=== PATIENT | female | born 1955 | race Caucasian/White ===

== ENCOUNTER 2017-07-07 02:24 | Observation (INO) | payer OTHER, SELFPAY ==
[2017-07-07 03:47] LABS: Troponin I Less than 0.010 ng/mL (< 0.028)
[2017-07-07] MEDS ORDERED: Acetaminophen 325 MG TAB PO PRN (05:34)
[2017-07-07] MEDS ORDERED: Ondansetron ODT 4 MG TAB PO PRN (05:34)
[2017-07-07] MEDS ORDERED: Acetaminophen 650 MG Suppository PR PRN (05:34)
[2017-07-07] MEDS ORDERED: Ibuprofen 600 MG TAB PO PRN (05:38)
[2017-07-07] MEDS ORDERED: Sodium Chloride 0.9% 1,000 ML IV SCH ×2 (05:45→06:30)
[2017-07-07] MEDS ORDERED: Levalbuterol HCl 0.63 MG/3 ML NEB NEB PRN (06:19)
[2017-07-07 06:49] LABS: Troponin I Less than 0.010 ng/mL (< 0.028)
[2017-07-07 07:29] VITALS: BP 129/61; TEMP 97.9
--- NOTE | 2017-07-07 07:36 | SS-2 ---
CODE STATUS: DNR. PRIMARY CARE PHYSICIAN: Dr. Connors in [place], [place] ATTENDING: Dr. Giancarlo Emerson RESIDENT: Shantel Ackerman D.O. HISTORIAN: Patient. CHIEF COMPLAINT: Passing out and chest pain. HISTORY OF PRESENT ILLNESS: The patient is a 62-year-old female with past medical history of asthma who presented to ER via transfer after having a syncopal episode related to possible chest pain. Reports partying with her family, drinking a lot and then passing out. Family reports she clenched her chest and passed out. The patient does not remember this. She reports no chest pain prior or after the event. Endorses occasional palpitations, daily alcohol use of 3 to a maximum of a case of beer daily. No history of DTs or seizures. She sees Dr. Connors in [place], has no cardiac problems. In the ER was given a banana bag. PAST MEDICAL HISTORY: 1. Asthma. 2. Chronic obstructive pulmonary disease. 3. Emphysema. PAST SURGICAL HISTORY: . ALLERGIES: "EVERYTHING". MEDICATIONS: Xopenex. FAMILY HISTORY: No coronary artery disease in the family. SOCIAL HISTORY: Denies tobacco use. Reports at least 3 beers per day, especially during the morning and as much as a case or 40 beers per day on occasion. Her last drink was the evening of 07/06/2017. Does report marijuana abuse. REVIEW OF SYSTEMS: GENERAL: The patient is negative for fever, chills, weight. Positive for appetite change, decreased. EYES: Negative for vision changes. ENT: Negative for rhinorrhea or congestion. RESPIRATORY: Negative for cough or congestion. CARDIOVASCULAR: Positive for chest pain and palpitations. GI: Negative for nausea, vomiting, diarrhea, constipation. GENITOURINARY: Denies incontinence, dysuria. SKIN: Denies rashes or lesions. MUSCULOSKELETAL: Reports pain, no tenderness or stiffness. NEURO: Denies weakness, numbness and syncope. PSYCHIATRIC: Denies anxiety, depression. PHYSICAL EXAMINATION: VITAL SIGNS: Blood pressure 113/52, pulse 64, respiratory rate 15, T-max 97.6, pulse ox 96% on room air, current weight 72.57 kilograms. GENERAL: The patient is alert and oriented x3, no acute distress, disheveled appearing and jittery. EYES: PERRLA, EOMI. ENT: Poor dentition. NECK: Supple. CARDIOVASCULAR: Regular rate and rhythm. No murmurs or gallops. Mild TTP of R chest. ABDOMEN: Soft, nontender. Bowel sounds present. EXTREMITIES: No clubbing, cyanosis or edema. SKIN: Warm and dry. MUSCULOSKELETAL: Structure within normal limits. Tone within normal limits. Muscle strength 5/5. Positive full range of motion. NEUROLOGIC: No focal deficits. Does appear to be shaking. GCS of 15. PSYCHIATRIC: Appropriate. LABORATORY DATA: CBC, white blood cell count 8.5, hemoglobin 12.7, hematocrit 37.5, MCV 97, % neutrophils 46. Chemistry: Sodium 132, potassium 3.7, chloride 97, CO2 21, BUN 8, creatinine 0.12, glucose 192. Calcium 8.5, total protein 7.6, albumin 3.7, AST 21, ALT 13 , alkaline phosphatase 69, total bilirubin 0.3, D-dimer 2.75, PTT 27.8, mag 2.0. Alcohol 229. EKG shows normal sinus rhythm. Chest x-ray; no acute process. ASSESSMENT AND PLAN: 1. Syncope, likely related to alcohol intoxication, but certain etiology unknown. Concern for arrhythmia with history of palpitations, malnutrition with a lack of proper diet, cardiac origin, orthostasis, or alcohol abuse. We will trend the troponin's, provide tele monitoring. IV fluids for rehydration, a prealbumin to evaluate malnutrition and perform orthostatics. Patient has a heart score of 0 and with that said, do not see a need for stress test. 2. Cannabis abuse. We will get a UDS and encourage cessation. 3. Costochondritis. We will provide ibuprofen for pain relief. 4. Asthma. We will give home medications. 5. Hyperglycemia. We will repeat tomorrow and consider A1c. 6. Hyponatremia, likely secondary to beer drinkers potomania. We will follow daily. 7. Elevated D-dimer. CTA was negative. HOSPITAL COURSE: Patient did well overnight. Troponins negative x3. Patient had no abnormalities on tele monitor. No need for further evaluation. Likely syncopal event related to alcohol intoxication. Discussed the need for alcohol cessation. Patient not interested in quitting and does not see a problem with her drinking. Disposition: Stable DISCHARGE INSTRUCTIONS: 1. Location: home 2. Diet: Regular 3. Activity: As tolerated 4. Follow up: Follow up with Dr. Connors in [place] in 1-2 wks. Patient was seen on rounds. I agree with posada portions of the note above. It is not clear from the story that she blacked out. It sounds more like she fell while intoxicated. No signs of seizure. Cardiac eval is negative. She is stable to go home. BRIA Emerson MD [facility]
[2017-07-07] MEDS ORDERED: FLU VACC QS2017-18 36 mo. & older 0.5 ML SYRINGE IM ONE (08:00)
[2017-07-07 08:19] LABS: Amphetamine Not Detected (NotDetected); Methadone Not Detected (NotDetected); Methamphetamine Not Detected (NotDetected)
--- NOTE | 2017-07-07 08:25 | CT ---
PRELIMINARY REPORT/[facility]/EMERGENCY AFTER HOURS PROCEDURE: EXAM: CT Angiography Chest With Intravenous Contrast CLINICAL HISTORY: 62 years old, female; Pain; Chest pain; Patient HX: 62 yr old female with pmh of asthma who presents as a transfer after having chest pain and passing out this evening. She reports partying with her fam julius, drinking a lot, and then passed out. Her family described it as her having clutched her chest an d then passed out. Unsure how long but patient states it was brief. She then reports the episode foll owed by going in and out of consciousness while sitting up. She describes chest pain like a knife sti cking into right side of chest and twisting. Denies SOB, diaphoresis, radiation of pain, or vomiting. TECHNIQUE: Axial computed tomographic angiography images of the chest with intravenous contrast using pulmonary embolism protocol. CONTRAST: 65 mL of iso 370 administered intravenously. COMPARISON: No relevant prior studies available. FINDINGS: Pulmonary arteries: Enlargement of the main pulmonary artery noted No pulmonary embolism. Aorta: No acute findings. No thoracic aortic aneurysm. Lungs: Unremarkable. No mass. No consolidation. Pleural space: Unremarkable. No significant effusion. No pneumothorax. Heart: Mild cardiomegaly. No significant pericardial effusion. No evidence of RV dysfunction. Bones/joints: No acute fracture. No dislocation. Soft tissues: Unremarkable. Lymph nodes:. Mildly large portacaval /gastrohepatic lymph nodes Question cirrhosis Mild esophageal thickening IMPRESSION: No definite pulmonary embolism. Mild enlargement of the main pulmonary artery. Correlate for pulmonary arterial hypertension Mild cardiomegaly Question mild esophagitis Mildly enlarged periportal lymph nodes. Question cirrhosis Thank you for allowing us to participate in the care of your patient. Dictated and Authenticated by: Ramy West MD 07/07/2017 4:28 AM Central Time ([place] & [place]) FINAL REPORT CT PULMONARY ANGIOGRAM WITH IV CONTRAST AND 3D POSTPROCESSING: I agree with the preliminary report given by Dr. Ramy West of [facility]. POS: [facility]
[2017-07-07 08:36] VITALS: BMI 21.6
[2017-07-07] MEDS ORDERED: ISOVUE-370 76%-LOCM 1 ML ONE (09:37)
[2017-07-07 09:51] LABS: Troponin I Less than 0.010 ng/mL (< 0.028)
--- NOTE | 2017-07-24 14:23 | EKG ---
Test Reason : SYNCOPEXFER Blood Pressure : / mmHG Vent. Rate : 068 BPM Atrial Rate : 068 BPM P-R Int : 138 ms QRS Dur : 084 ms QT Int : 438 ms P-R-T Axes : 049 067 065 degrees QTc Int : 465 ms Normal sinus rhythm No ST/T wave changes Confirmed by VAMSI KEARNEY DO ([id number]), newspaper or periodical editor FREDI SORIANO ([id number]) on 07/24/2017 2:23:03 PM Referred By: CARMELO Confirmed By:VAMSI KEARNEY DO
== END 2017-07-07 16:10 | disposition home or self-care (01) ==
LOC: ERS 02:24 → 2SW 03:47
PROVIDERS: ADMIT Family Medicine; ATTEND Family Medicine
DX: R55 Syncope and collapse (principal); R07.9 Chest pain, unspecified; J45.909 Unspecified asthma, uncomplicated; J43.9 Emphysema, unspecified; F12.10 Cannabis abuse, uncomplicated; M94.0 Chondrocostal junction syndrome [Tietze]; R73.9 Hyperglycemia, unspecified; E87.1 Hypo-osmolality and hyponatremia; Z72.89 Other problems related to lifestyle; Z88.8 Allergy status to other drugs, medicaments and biological substances; Z88.5 Allergy status to narcotic agent; Z98.890 Other specified postprocedural states
CPT/HCPCS: 36415; 71275; 80306; 82553; 84134; 84484; 85379; 93005; 96360; 96361; G0378

== ENCOUNTER 2019-11-22 19:30 | Inpatient (IN) | payer OTHER ==
[~2019-11-22 19:30] MED LIST: Iopamidol 370 76% 100 ML VIAL ONE
[2019-11-22 20:23] LABS: Mean Corpuscular HGB CONC 34.6 g/dL (32.0-36.0); Mean Corpuscular Hemoglobin 33.2 pg (27.0-31.0); Mean Corpuscular Volume 95.9 fL (78.0-98.0); Mean Platelet Volume 9.1 fL (7.4-10.4); Platelet Count 138 thou/uL (130-400); RBC Distribution Width 12.7 % (11.5-14.5); Red Blood Cell (RBC) Count 3.63 mill/uL (4.20-5.40); White Blood Cell (WBC) Count 18.2 thou/uL (4.8-10.8)
[2019-11-22] MEDS ORDERED: Cefepime 2 GM VIAL ONE (20:25)
[2019-11-22] MEDS ORDERED: Ondansetron PF 4 MG/2 ML Vial ONE (20:25)
--- NOTE | 2019-11-22 20:29 | RAD ---
SINGLE VIEW OF THE PELVIS AND TWO VIEWS OF THE LEFT HIP 11/22/19 HISTORY: Fatigue and left hip pain. FINDINGS: A single view of the pelvis and two views of the left hip shows the patient to be status post left hi p arthroplasty. No perihardware lucency or fracture is seen. No degenerative changes are seen in the right hip. IMPRESSION: Status post left hip arthroplasty without evidence of complication. POS: [facility]
--- NOTE | 2019-11-22 20:30 | RAD ---
SINGLE VIEW OF THE CHEST: 11/22/19 COMPARISON: 03/29/18 HISTORY: Fever with weakness and fatigue. FINDINGS: Single view of the chest shows a normal sized cardiomediastinal silhouette. There is no evidence of c onsolidation, mass, or pleural effusion. Degenerative changes are seen in the spine. IMPRESSION: No evidence of acute cardiopulmonary disease. POS: [facility]
[2019-11-22 20:40] LABS: Band 23 % (5-11); Lymphocytes 8 % (21-51); MDiff Complete? YES; Metamyelocyte 2 % (0-0); Monocytes 2 % (0-10); Neutrophil 63 % (42-75); Platelet Morphology Comment Appears Adequate; RBC Morphology Normal
[2019-11-22 20:45] LABS: ALT (SGPT) 13 U/L (8-55); AST (SGOT) 18 U/L (5-34); Albumin 3.3 g/dL (3.4-4.8); Alkaline Phosphatase 66 U/L (40-110); Anion Gap 15 mmol/L (10-20); BUN (Urea Nitrogen) 20 mg/dL (9.8-20.1); Bilirubin, Total 0.9 mg/dL (0.2-1.2); CK (CPK) 202 U/L (29-168); Calc. Creatinine Clearance 0 mL/min (70-130); Calcium 8.1 mg/dL (7.8-10.44); Carbon Dioxide 18 mmol/L (23-31); Chloride 102 mmol/L (98-107); Estimated GFR-MDRD 43; Globulin 3.6 g/dL (2.4-3.5); Glucose 324 mg/dL (80-115); Lipase 17 U/L (8-78); Magnesium 1.6 mg/dL (1.6-2.6); Protein, Total 6.9 g/dL (6.0-8.3); Sodium 131 mmol/L (136-145)
[2019-11-22] MEDS ORDERED: Vancomycin 1 GM/200 ML BAG ONE (21:32)
[2019-11-22 22:33] LABS: Bacteria/HPF 4+ HPF (None Seen); Bilirubin Negative (Negative); Blood, Urine 1+ (Negative); Clarity Turbid (Clear); Glucose, Urine (Dipstick) 500 mg/dL (Negative); Leukocyte 500 Leu/uL (Negative); Nitrite 2+ (Negative); Protein, Urine (Dipstick) 70 mg/dL (Neg-Trace); RBC/HPF 0-3 HPF (0-3); Renal Epithelial 0-3 HPF (None Seen); Urobilinogen Normal mg/dL (Less than 2); WBC/HPF Greater than 50 HPF (0-3)
--- NOTE | 2019-11-22 22:57 | CT ---
CT OF THE ABDOMEN AND PELVIS WITH CONTRAST: 11/22/19 COMPARISON: None. HISTORY: Fever with weakness and fatigue. TECHNIQUE: Multiple contiguous axial images were obtained in a CT of the abdomen and pelvis with contrast. Sagit megan and coronal reformats were performed. FINDINGS: Stranding changes are seen surrounding the left kidney. These stranding changes extend up to the tail of the pancreas. The left kidney has a slightly abnormal enhancement compared to the opposite side. No hydronephrosis is seen. No calcification is seen in either kidney. Adjacent to the left kidney and just behind the left renal artery, there is a tubular area of hyperenhancement measuring 2.7 cm in l ength x 1.2 cm x 0.9 cm in size. This has surrounding stranding changes. Other smaller retroperitonea l lymph nodes are seen which have a similar density. The liver, gallbladder, adrenal glands, and spleen are unremarkable. The large and small bowel are unremarkable. The appendix is normal. No abdominal or pelvic lymphadeno chandrika are seen. The reproductive organs are unremarkable. The patient has a left hip prosthesis which produces streak artifact limiting evaluation of the pelvi s. There is a calcification in the left pelvis which most likely represents a phlebolith rather than a left distal ureteral calcification. Degenerative changes are seen in the spine. The visualized inferior thorax and abdominal wall soft ti ssues are unremarkable. IMPRESSION: 1. There is stranding changes surrounding the left kidney which has a slightly abnormal enhancem ent pattern. Pyelonephritis is of primary concern. 2. There is a tubular shaped area of enhancement with surrounding stranding change adjacent to t he left kidney. This could represent an enlarged inflamed lymph node. This does not definitely connec t with the vascular structures in the region, but a pseudoaneurysm is also a possibility. POS: [facility]
[2019-11-22] MEDS ORDERED: Sodium Chloride 0.9% 1,000 ML IV SCH (23:15)
[2019-11-22] MEDS ORDERED: Ondansetron PF 4 MG/2 ML Vial IVP PRN (23:17)
[2019-11-23] MEDS: Sodium Chloride 0.9% 1,000 ML IV SCH ×2 (00:28→11:48)
--- NOTE | 2019-11-23 00:36 | HP ---
CHIEF COMPLAINT: Weakness and fever. HISTORY OF PRESENT ILLNESS: Ms. Acevedo is a 64-year-old female with past medical history of asthma/COPD, irritable bowel syndrome, who presents to the emergency room with weakness, fever, and fatigue. The patient reports fever was measured at 103.2. The patient also had associated nausea and vomiting that began today. The patient also had hip pain. The patient had a hip replacement surgery in the past. Workup in the emergency room, the patient was septic, hypotensive initially as per EMS, and the patient was given 2 L of IV fluids. Blood pressure was in the 80s. Latest blood pressure is 100/65. The patient was tachycardic with heart rate 102. The patient had elevated WBC count of 18.2, with bandemia. Imaging studies showed pyelonephritis. Urine showed urinary tract infection. Septic workup done in the ED. Started on IV antibiotics. The patient is being admitted to the hospital for further management. PAST MEDICAL HISTORY: As mentioned above in the history of present illness. PAST SURGICAL HISTORY: 1. Left hip open reduction and internal fixation. 2. . SOCIAL HISTORY: The patient drinks socially. No smoking history. FAMILY HISTORY: Reviewed and noncontributory. HOME MEDICATIONS: Please see home medication reconciliation form for updated medications. ALLERGIES: ALLERGIC TO BENADRYL AND CODEINE. REVIEW OF SYSTEMS: Review of 14 systems negative except what is mentioned in the history of present illness. PHYSICAL EXAMINATION: GENERAL: The patient is awake and alert, in moderate distress. VITAL SIGNS: Blood pressure 106/65; pulse 75; temperature 98.8, temperature maximum 100.9, at home temperature was 103.2; pulse oximetry 99% on room air. HEAD: Normocephalic, atraumatic. NECK: Supple. No JVD. CHEST: Fair bilateral air entry. HEART: S1 and S2. Regular. ABDOMEN: Soft, nontender. Bowel sounds present. NEUROLOGIC: Awake, alert, and oriented x3. No focal deficit. PSYCH: Unable to assess. EXTREMITIES: No clubbing, no cyanosis. GENITOURINARY: No suprapubic tenderness, but bilateral flank tenderness. LABORATORY DATA: As mentioned above in the history of present illness plus creatinine is 1.27. IMAGING STUDIES: Chest x-ray, no acute finding. X-ray of the hip, no acute finding. ASSESSMENT: 1. Sepsis secondary to urinary tract infection. 2. Acute pyelonephritis. 3. Asthma/chronic obstructive pulmonary disease. 4. Irritable bowel syndrome. 5. Nausea and vomiting. PLAN: 1. Admit. 2. Septic workup including blood cultures and urine cultures. 3. Continue with IV antibiotics. The patient was started on cefepime and vancomycin. 4. IV fluids. 5. Reconcile home medications. 6. DVT prophylaxis as appropriate. 7. Expected length of stay, 2 midnights or more. Job ID: [id number]
[2019-11-23 00:57] VITALS: BMI 28.8
[2019-11-23] MEDS: Acetaminophen 325 MG TAB PO PRN ×3 (03:51→18:28)
[2019-11-23 05:27] LABS: #Monocytes 0.9 thou/uL (0.11-0.59); #Neutrophils 11.1 thou/uL (1.40-6.50); %Basophils 0.2 % (0.0-1.0); %Eosinophils 0.2 % (0.0-10.0); %Lymphocytes 7.8 % (21.0-51.0); %Monocytes 6.7 % (0.0-10.0); %Neutrophils 85.2 % (42.0-75.0); Hemoglobin 11.2 g/dL (12.0-16.0); Mean Corpuscular HGB CONC 34.1 g/dL (32.0-36.0); Mean Corpuscular Hemoglobin 32.8 pg (27.0-31.0); Mean Corpuscular Volume 96.2 fL (78.0-98.0); Mean Platelet Volume 8.8 fL (7.4-10.4); Platelet Count 120 thou/uL (130-400); RBC Distribution Width 12.8 % (11.5-14.5); Red Blood Cell (RBC) Count 3.42 mill/uL (4.20-5.40)
[2019-11-23 05:48] LABS: ALT (SGPT) 13 U/L (8-55); AST (SGOT) 17 U/L (5-34); Albumin 3.1 g/dL (3.4-4.8); Alkaline Phosphatase 60 U/L (40-110); Anion Gap 15 mmol/L (10-20); BUN (Urea Nitrogen) 18 mg/dL (9.8-20.1); Bilirubin, Total 0.7 mg/dL (0.2-1.2); Calc. Creatinine Clearance 63 mL/min (70-130); Calcium 7.9 mg/dL (7.8-10.44); Carbon Dioxide 18 mmol/L (23-31); Chloride 102 mmol/L (98-107); Estimated GFR-MDRD 48; Globulin 3.5 g/dL (2.4-3.5); Glucose 237 mg/dL (80-115); Potassium 3.6 mmol/L (3.5-5.1); Protein, Total 6.6 g/dL (6.0-8.3); Sodium 131 mmol/L (136-145)
[2019-11-23] MEDS: Cefepime 2 GM in Sodium Chloride 0.9% 100 ML IVPB SCH ×2 (07:59→20:18)
[2019-11-23] MEDS ORDERED: Dextrose 50% Abboject 50 ML SYRINGE SLOW IVP PRN (08:46)
[2019-11-23] MEDS ORDERED: Dextrose 5% in Water 1,000 ML IV PRN (08:46)
[2019-11-23] MEDS ORDERED: Vancomycin HCl 1 GM in Sodium Chloride 0.9% 250 ML 300 ML IVPB SCH (09:00)
[2019-11-23] MEDS: glipiZIDE 10 MG TAB PO SCH (09:52)
[2019-11-23] MEDS ORDERED: Vancomycin 1.5 GRAM/300 ML BAG 1.5 GM in Premix Bag 1 BAG IVPB SCH (14:00)
[2019-11-23] MEDS: HumaLOG 300 UNITS/3 ML VIAL SC PRN ×2 (14:02→17:15)
[2019-11-23] MEDS: Mometasone 200 MCG/Formoterol 5 MCG 120 PUFF INHALER INH SCH (18:43)
[2019-11-23] MEDS: Montelukast Sodium 10 mg Tablet PO SCH (20:18)
[2019-11-24] MEDS: Acetaminophen 325 MG TAB PO PRN ×2 (04:58→22:05)
--- NOTE | 2019-11-24 05:54 | PDOC.HOSPP ---
- Subjective Encounter Date: 11/23/19 Encounter Time: 11:00 Subjective: pt up in bed complains of pain all over and chills. - Objective Vital Signs & Weight: Vital Signs (12 hours) Temp Pulse Resp BP BP Pulse Ox 11/24/19 04:00 98.6 F 91 18 90/42 L 90/42 L 96 11/24/19 00:00 98.4 F 60 18 141/75 H 108/64 95 11/23/19 20:00 102.8 F H 103 H 20 123/71 95 11/23/19 19:30 102.8 F H 103 H 20 123/71 95 11/23/19 18:43 101 H 16 98 Weight Weight 173 lb 1.006 oz Result Diagrams: 11/23/19 05:01 11/23/19 05:01 Additional Labs: Accuchecks 11/24/19 11/23/19 11/23/19 04:26 19:24 16:43 POC Glucose 196 H 205 H 229 H 11/23/19 11:19 POC Glucose 296 H Hospitalist ROS - Review of Systems Cardiovascular: denies: chest pain, palpitations, orthopnea, paroxysmal noc. dyspnea, edema, light headedness, other Gastrointestinal: denies: nausea, vomiting, abdominal pain, diarrhea, constipation, melena, hematochezia, other Genitourinary: denies: dysuria, frequency, incontinence, hematuria, retention, other Musculoskeletal: reports: other - Medication Medications: Active Medications Generic Name Dose Route Start Last Admin Trade Name Freq PRN Reason Stop Dose Admin Acetaminophen 650 mg 11/22/19 23:17 11/24/19 04:58 Tylenol PO 650 mg Q4H PRN Administration Headache/Fever/Mild Pain (1-3) Glipizide 10 mg 11/23/19 09:00 11/23/19 09:52 Glucotrol PO 10 mg DAILY CLYDE Administration Cefepime HCl 2 gm/ Sodium 100 mls @ 200 mls/hr 11/23/19 09:00 11/23/19 20:18 Chloride IVPB 100 mls Q12HR CLYDE Administration Sodium Chloride 1,000 mls @ 75 mls/hr 11/22/19 23:45 11/23/19 11:48 Normal Saline 0.9% IV 1,000 mls .[id number] CLYDE Administration Vancomycin HCl 1.5 gm/ Device 300 mls @ 200 mls/hr 11/23/19 14:00 11/23/19 13 :59 IVPB 300 mls 1400 CLYDE Administration Insulin Human Lispro 0 units 11/23/19 08:46 11/23/19 17:15 Humalog SC 3 unit .MILD SLIDING SCALE PRN Administration Mild Correctional Scale Mometasone Furoate/Formoterol Fumar 2 puff 11/23/19 18:30 11/23/19 18:43 Dulera 200 Mcg/5 Mcg Inhaler INH 2 puff BID-RT CLYDE Administration Montelukast Sodium 10 mg 11/23/19 21:00 11/23/19 20:18 Singulair PO 10 mg HS CLYDE Administration - Exam Neck: negative: supple, symmetric, no JVD, no thyromegaly, no lymphadenopathy, no carotid bruit, JVD Heart: negative: RRR, no murmur, no gallops, no rubs, normal peripheral pulses, irregular, diminshed peripheral pulses, murmur present, II/IV, III/IV Respiratory: negative: CTAB, no wheezes, no rales, no ronchi, normal chest expansion, no tachypnea, normal percussion, rales, rhonchi, tachypneic, wheezes Gastrointestinal: soft, non-tender, normal bowel sounds Extremities: negative: no cyanosis, no clubbing, no edema, 1+ LE edema, 2+ LE edema, clubbing Hosp A/P (1) Sepsis Code(s): A41.9 - SEPSIS, UNSPECIFIED ORGANISM Status: Acute (2) Pyelonephritis Code(s): N12 - TUBULO-INTERSTITIAL NEPHRITIS, NOT SPCF ACUTE OR CHRONIC Status: Acute (3) Bacteremia Code(s): R78.81 - BACTEREMIA Status: Acute (4) Diabetes mellitus Code(s): E11.9 - TYPE 2 DIABETES MELLITUS WITHOUT COMPLICATIONS Status: Acute - Plan will switch abx to ceftriaxone. will continue iv fluids. will put her on sliding scale given her elevated blood sugars. will continue her home diabetic meds too.
[2019-11-24] MEDS: Sodium Chloride 0.9% 1,000 ML IV SCH ×2 (06:03→16:44)
[2019-11-24] MEDS ORDERED: Non-Formulary Item 1 EACH (Levalbuterol Tartrate [Xopenex Hfa Inhaler] 2 PUFF) INH PRN (06:04)
[2019-11-24] MEDS ORDERED: PROVENTIL INHALER 6.7 G (200 INHALATIONS) INH PRN (06:14)
[2019-11-24] MEDS: Mometasone 200 MCG/Formoterol 5 MCG 120 PUFF INHALER INH SCH ×2 (06:58→19:06)
[2019-11-24] MEDS ORDERED: cefTRIAXone\\ROCEPHIN 2 GM in Sodium Chloride 0.9% 100 ML IVPB SCH (07:00)
[2019-11-24] MEDS: glipiZIDE 10 MG TAB PO SCH (08:56)
--- NOTE | 2019-11-24 14:49 | EKG ---
Test Reason : Blood Pressure : / mmHG Vent. Rate : 092 BPM Atrial Rate : 092 BPM P-R Int : 160 ms QRS Dur : 082 ms QT Int : 368 ms P-R-T Axes : 073 072 063 degrees QTc Int : 455 ms Normal sinus rhythm Low voltage QRS Cannot rule out Anterior infarct , age undetermined Abnormal ECG Confirmed by KHARI PRIDE ([id number]), multimedia editor FREDI SORIANO ([id number]) on 11/24/2019 2:48:59 PM Referred By: Confirmed By:KHARI PRIDE
[2019-11-24] MEDS: HumaLOG 300 UNITS/3 ML VIAL SC PRN (16:44)
--- NOTE | 2019-11-24 18:21 | PDOC.HOSPP ---
- Subjective Encounter Date: 11/24/19 Encounter Time: 10:30 Subjective: pt up in bed feels well and wants to go home. - Objective Vital Signs & Weight: Vital Signs (12 hours) Temp Pulse Resp BP Pulse Ox 11/24/19 08:00 96 11/24/19 07:55 98.3 F 82 16 114/65 96 11/24/19 06:58 93 18 97 Weight Weight 173 lb 1.006 oz Result Diagrams: 11/23/19 05:01 11/23/19 05:01 Additional Labs: Accuchecks 11/24/19 11/24/19 11/24/19 16:34 10:37 04:26 POC Glucose 257 H 268 H 196 H 11/23/19 19:24 POC Glucose 205 H Hospitalist ROS - Review of Systems Cardiovascular: denies: chest pain, palpitations, orthopnea, paroxysmal noc. dyspnea, edema, light headedness, other Gastrointestinal: denies: nausea, vomiting, abdominal pain, diarrhea, constipation, melena, hematochezia, other Genitourinary: denies: dysuria, frequency, incontinence, hematuria, retention, other - Medication Medications: Active Medications Generic Name Dose Route Start Last Admin Trade Name Freq PRN Reason Stop Dose Admin Acetaminophen 650 mg 11/22/19 23:17 11/24/19 04:58 Tylenol PO 650 mg Q4H PRN Administration Headache/Fever/Mild Pain (1-3) Glipizide 10 mg 11/23/19 09:00 11/24/19 08:56 Glucotrol PO 10 mg DAILY CLYDE Administration Sodium Chloride 1,000 mls @ 75 mls/hr 11/22/19 23:45 11/24/19 16:44 Normal Saline 0.9% IV 1,000 mls .[id number] CLYDE Administration Ceftriaxone Sodium 2 gm/ 100 mls @ 200 mls/hr 11/24/19 07:00 11/24/19 08:56 Sodium Chloride IVPB 100 mls Q24HR CLYDE Administration Insulin Human Lispro 0 units 11/23/19 08:46 11/24/19 16:44 Humalog SC 4 unit .MILD SLIDING SCALE PRN Administration Mild Correctional Scale Mometasone Furoate/Formoterol Fumar 2 puff 11/23/19 18:30 11/24/19 06:58 Dulera 200 Mcg/5 Mcg Inhaler INH 2 puff BID-RT CLYDE Administration Montelukast Sodium 10 mg 11/23/19 21:00 11/23/19 20:18 Singulair PO 10 mg HS CLYDE Administration Sodium Chloride 10 ml 11/24/19 09:00 11/24/19 09:14 Flush - Normal Saline IVF Not Given Q12HR CLYDE - Exam Neck: negative: supple, symmetric, no JVD, no thyromegaly, no lymphadenopathy, no carotid bruit, JVD Heart: negative: RRR, no murmur, no gallops, no rubs, normal peripheral pulses, irregular, diminshed peripheral pulses, murmur present, II/IV, III/IV Respiratory: negative: CTAB, no wheezes, no rales, no ronchi, normal chest expansion, no tachypnea, normal percussion, rales, rhonchi, tachypneic, wheezes Gastrointestinal: negative: soft, non-tender, non-distended, normal bowel sounds , no palpable masses, no hepatomegaly, no splenomegaly, no bruit, no guarding, no rigidity, tender to palpation, distended, diminished bowl sounds, voluntary guarding Hosp A/P (1) Sepsis Code(s): A41.9 - SEPSIS, UNSPECIFIED ORGANISM Status: Acute (2) Pyelonephritis Code(s): N12 - TUBULO-INTERSTITIAL NEPHRITIS, NOT SPCF ACUTE OR CHRONIC Status: Acute (3) Bacteremia Code(s): R78.81 - BACTEREMIA Status: Acute (4) Diabetes mellitus Code(s): E11.9 - TYPE 2 DIABETES MELLITUS WITHOUT COMPLICATIONS Status: Acute - Plan will switch abx to ceftriaxone. will continue iv fluids. will put her on sliding scale given her elevated blood sugars. will continue her home diabetic meds too. 11/23 will continue current abx, ID consulted. possible will discharge pt home if she does well brigitte. will need final cx.
--- NOTE | 2019-11-24 18:57 | CON ---
DATE OF CONSULTATION: 11/24/2019 REASON FOR CONSULTATION: Urosepsis. HISTORY OF PRESENT ILLNESS: A 64-year-old, who previously had been to [facility] and admitted for chest pain, rule out [place] situations in 17, 18, and 19 and this time brought in because of fever, general malaise, and vomiting. She also had some hip pain reported. There is no dyspnea or cough. No chest pain and did not have any abdominal pain. She also did not have any dysuria. The patient had a CT, which demonstrated findings consistent with left-sided pyelonephritis, leukocytosis with bandemia, and abnormal urinalysis. Two sets of blood cultures that yielded E. coli with pending susceptibilities. The patient has been treated with ceftriaxone with improvement. She is currently feeling back to normal, abiding a bit to go home. REVIEW OF SYSTEMS: A 10-point review of systems is negative at the moment. She denies any are incontinence. She does not think she retains urine. PAST MEDICAL HISTORY: COPD, episodes of chest pain with negative workup, one episode of invasive UTI, which was treated at [facility] about a year before this admission. She has a hip replacement in the past, but no other surgical procedure. Hip replacement was on the left side. She did have a though. Type 2 diabetes. 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 No smoking history. FAMILY HISTORY: Noncontributory. ALLERGIES: BENADRYL AND CODEINE. CURRENT MEDICATIONS: 1. Inhalers. 2. Ceftriaxone. 3. Glipizide, looks like she has a history of type 2 diabetes too, it is not reported in the note. 4. She is on insulin. PHYSICAL EXAMINATION: VITAL SIGNS: T-max 102.9, currently she has been afebrile. BP 114/65, pulse 82, respirations 16 to 18, and O2 saturation 96. SKIN: Exam was normal. Peripheral IV access. She is voiding in the toilet. No lymphadenopathy. HEENT: Noncontributory except for multiple missing teeth with decay and periodontitis. NECK: Supple. No jugular vein distention. No thyromegaly. LUNGS: Symmetric clear breath sounds. HEART: S1 and S2. Regular rate. No S3 or S4. ABDOMEN: Soft, somewhat protuberant. No ascites. No organomegaly. No bladder distention. EXTREMITIES: No joint inflammatory activity. Range of motion does not elicit pain in any joint. Pulses 1+ in dorsalis pedis. No edema. NEUROLOGIC: Nonfocal including cognitive function. LABORATORY DATA: White cell count is down to 13,000, hemoglobin 11, and platelets 120,000 with 85% neutrophils. Sodium 131, creatinine is up to 1.14 compared to baseline, but down from admission. Liver profile normal. Albumin 3.1 and lipase was within normal limits. Urinalysis with greater than 50 wbc's. IMAGING: Include abdomen and pelvis CT with stranding left kidney with enhancement, evidence of lymphadenitis around the kidney as well. Chest x-ray with no acute findings. ASSESSMENT AND PLAN: Type 2 diabetes, recurrent urinary tract infections including invasive character, now with pyelonephritis, left side. No obstructive features are noted. Susceptibility of the organism is still pending. We need to evaluate the cultures from [facility] to see if this is the same organism or not. If it is, she would merit a longer course of antimicrobial therapy for at least 4 weeks. If not, then short course of 10 to 14 days would suffice. The patient may merit suppressive therapy with nitrofurantoin or Bactrim depending on the susceptibility results of the culture. It does not appear to be any ESBL organism, so Rocephin seems to be adequate at the moment. The hope is that either Bactrim or preferably a quinolone will be active against the pathogen to allow discharge planning. Oral third generation cephalosporins are notoriously less effective for management of pyelonephritis. I would not recommend oral cephalosporins in this case, even if the organism is shown to be susceptible to third generation cephalosporins. Job ID: [id number]
[2019-11-24] MEDS: Montelukast Sodium 10 mg Tablet PO SCH (19:26)
[2019-11-25] MEDS ORDERED: cefTRIAXone\\ROCEPHIN 2 GM in Sodium Chloride 0.9% 100 ML IVPB SCH (07:00)
[2019-11-25] MEDS: Sodium Chloride 0.9% 1,000 ML IV SCH (07:04)
[2019-11-25 07:15] VITALS: BP 153/81; TEMP 98.3
[2019-11-25] MEDS: Mometasone 200 MCG/Formoterol 5 MCG 120 PUFF INHALER INH SCH (07:29)
[2019-11-25] MEDS: glipiZIDE 10 MG TAB PO SCH (08:23)
[2019-11-25] MEDS: Acetaminophen 325 MG TAB PO PRN (08:23)
--- NOTE | 2019-11-25 16:42 | DIS ---
DATE OF ADMISSION: 11/22/2019 DATE OF DISCHARGE: 11/25/2019 REASON FOR ADMISSION: E coli bacteremia, invasive urinary tract infection. SECONDARY DISCHARGE DIAGNOSIS: Left-sided pyelonephritis, diabetes mellitus type 2, and COPD. PROCEDURES DONE DURING HOSPITALIZATION: Blood cultures x2 grew E coli sensitive to all antibiotics. CT of the abdomen and pelvis done showed there was stranding around the left kidney suggestive of pyelonephritis. Chest x-ray done showed no acute cardiopulmonary abnormalities. Left hip three view x-ray done shows findings suggestive of left hip arthroplasty without complication. Influenza A and B antigens were negative. Urine culture showed less than 10,000 colony-forming units per mL of mixed kevin. Had a white count of 18 on the day of admission. H and H 12 and 34, platelet count 138 with 23% bands and 63% neutrophils. BUN and creatinine were 18 and 1.1 on the . DISCHARGE MEDICATIONS: 1. Glipizide 10 mg p.o. daily. 2. Advair Diskus 500/50 mcg two puffs twice daily. 3. Xopenex inhaler q.4 hourly p.r.n. 4. Singulair 10 mg p.o. at bedtime. 5. Ciprofloxacin 500 mg p.o. twice daily for 14 days. ALLERGIES: ALLERGIC TO CODEINE, BENADRYL, AND IODINE. DISCHARGE PLAN: The patient to follow up with her primary care physician, Dr. Tad López in 1 week. BRIEF COURSE DURING HOSPITALIZATION: The patient initially came to ER with complaints of weakness and fever. Her initial workup revealed UTI with left-sided pyelonephritis. She was septic as well. She was gently hydrated with IV fluids and was on broad-spectrum IV antibiotic. 2 blood cultures grew E coli. She has had similar infection a year back at [facility]. We were unable to obtain records from there. The patient is strongly advised to follow up with her primary care physician in 1 week and if needed, needs to be on suppressive antibiotics after the two-week course of quinolones. She was given full information about all the side effects of quinolones. She is wanting to go home from last 2 days. She was evaluated by Dr. Mcguire as well. Prior to discharge, Ms. Acevedo is ambulating and eating well. Please note I have seen and examined the patient on the day of discharge. Job ID: [id number]
== END 2019-11-25 11:46 | disposition home or self-care (01) | DRG 872 ==
LOC: ERS 19:30 → T4-B 23:23
PROVIDERS: ADMIT Internal Medicine; ATTEND Internal Medicine
DX: A41.51 Sepsis due to Escherichia coli [E. coli] (principal); N10 Acute pyelonephritis; J44.9 Chronic obstructive pulmonary disease, unspecified; Z96.642 Presence of left artificial hip joint; K58.9 Irritable bowel syndrome, unspecified; E11.65 Type 2 diabetes mellitus with hyperglycemia; Z88.5 Allergy status to narcotic agent; Z88.8 Allergy status to other drugs, medicaments and biological substances; Z79.899 Other long term (current) drug therapy; Z79.4 Long term (current) use of insulin; Z79.51 Long term (current) use of inhaled steroids
CPT/HCPCS: 36415; 36416; 71045; 74177; 80053; 81003; 81015; 82550; 83605; 83690; 83735; 84443; 84484; 85025; 87040; 87077; 87086; 87149; 87186; 87804; 93005; 96365; 96366; 96367; J0692; J0696; J2405; J3370; J3490; Q9967

== ENCOUNTER 2023-03-14 19:35 | Observation (INO) | payer OTHER ==
[2023-03-14] MEDS ORDERED: Ondansetron PF 4 MG/2 ML Vial IVP PRN ×2 (22:45→23:23)
[2023-03-14] MEDS ORDERED: Ondansetron ODT 4 MG TAB SL PRN (22:45)
[2023-03-14] MEDS ORDERED: Sodium Chloride 0.9% 1,000 ML IV SCH (22:45)
[2023-03-14] MEDS ORDERED: Acetaminophen 325 MG TAB PO PRN ×2 (22:45→23:23)
[2023-03-14] MEDS ORDERED: Dextrose 5% in Water 1,000 ML IV PRN (23:23)
[2023-03-14] MEDS ORDERED: hydrALAZINE 20 MG/ML VIAL SLOW IVP PRN (23:23)
[2023-03-14] MEDS ORDERED: Glucagon 1 MG/ML KIT IM PRN (23:23)
[2023-03-14] MEDS ORDERED: Dextrose 50% Abboject 50 ML SYRINGE SLOW IVP PRN (23:23)
[2023-03-14] MEDS ORDERED: HumaLOG 300 UNITS/3 ML VIAL SC PRN (23:23)
[2023-03-14] MEDS ORDERED: Ondansetron ODT 4 MG TAB PO PRN (23:23)
[2023-03-14] MEDS ORDERED: Aspirin Chewable 81 MG TAB PO SCH (23:45)
[2023-03-14] MEDS ORDERED: Loratadine 10 MG TAB PO PRN (23:55)
[2023-03-15 04:44] LABS: #Eosinphils 0.3 thou/uL (0.0-0.7); #Monocytes 0.6 thou/uL (0.11-0.59); #Neutrophils 3.9 thou/uL (1.40-6.50); %Basophils 0.5 % (0.0-1.0); %Eosinophils 4.2 % (0.0-10.0); %Lymphocytes 34.4 % (21.0-51.0); %Monocytes 7.7 % (0.0-10.0); %Neutrophils 52.9 % (42.0-75.0); Hematocrit 32.2 % (36.0-47.0); Hemoglobin 10.6 g/dL (12.0-16.0); Mean Corpuscular HGB CONC 32.9 g/dL (32.0-36.0); Mean Corpuscular Hemoglobin 30.8 pg (27.0-31.0); Mean Corpuscular Volume 93.6 fl (78.0-98.0); Mean Platelet Volume 10.9 fL (7.4-10.4); Platelet Count 184 10x3/uL (130-400); RBC Distribution Width 11.9 % (11.5-14.5); Red Blood Cell (RBC) Count 3.44 mill/uL (4.20-5.40); White Blood Cell (WBC) Count 7.3 10x3/uL (4.8-10.8)
[2023-03-15 04:48] LABS: Hemoglobin A1c 11.6 % (4.0-6.0)
[2023-03-15 05:03] LABS: Anion Gap 9 mmol/L (10-20); BUN (Urea Nitrogen) 12 mg/dL (9.8-20.1); Calc. Creatinine Clearance 0 mL/min (70-130); Calcium 8.5 mg/dL (7.8-10.44); Carbon Dioxide 25 mmol/L (23-31); Cardiac Risk 4.5 (Less than 4.5); Chloride 103 mmol/L (98-107); Cholesterol 161 mg/dl (< 200 Desired); Estimated GFR 70; Glucose 192 mg/dL (80-115); HDL Cholesterol 36 mg/dL (>60 Neg Risk); LDL Cholesterol, Calculated 91 mg/dL; Magnesium 2.2 mg/dL (1.6-2.6); Potassium 4.3 mmol/L (3.5-5.1); Sodium 133 mmol/L (136-145); Triglycerides 170 mg/dL (Less than 150)
[2023-03-15] MEDS: HumaLOG 300 UNITS/3 ML VIAL SC PRN ×2 (05:50→12:25)
[2023-03-15] MEDS ORDERED: Aspirin 81 mg Enteric Coated Tablet PO SCH (09:00)
[2023-03-15 11:44] VITALS: BMI 24.1
[2023-03-15 16:06] VITALS: BP 153/69; TEMP 98
[2023-03-15] MEDS ORDERED: Atorvastatin Calcium 40 MG TAB PO SCH (21:00)
== END 2023-03-15 17:10 | disposition home or self-care (01) ==
LOC: 2SE 22:26
PROVIDERS: ADMIT Family Medicine; ATTEND Nurse Practitioner Acute Care
DX: G45.9 Transient cerebral ischemic attack, unspecified (principal); E11.65 Type 2 diabetes mellitus with hyperglycemia; M19.90 Unspecified osteoarthritis, unspecified site; J45.909 Unspecified asthma, uncomplicated; J44.9 Chronic obstructive pulmonary disease, unspecified; Z79.82 Long term (current) use of aspirin; Z79.4 Long term (current) use of insulin; Z79.899 Other long term (current) drug therapy; Z88.6 Allergy status to analgesic agent; Z88.8 Allergy status to other drugs, medicaments and biological substances; Z91.041 Radiographic dye allergy status
CPT/HCPCS: 36415; 36416; 70551; 80048; 80061; 83036; 83735; 84443; 85025; 93880; G0378; J1815

== ENCOUNTER 2023-10-11 11:09 | Inpatient (IN) | payer MEDICARE, MEDICAID ==
[2023-10-11 11:49] LABS: #Basophils 0.1 thou/uL (0.0-0.2); #Eosinphils 0.2 thou/uL (0.0-0.7); #Monocytes 0.3 thou/uL (0.11-0.59); #Neutrophils 3.1 thou/uL (1.40-6.50); %Basophils 1.1 % (0.0-1.0); %Eosinophils 3.4 % (0.0-10.0); %Lymphocytes 31.1 % (21.0-51.0); %Neutrophils 59.2 % (42.0-75.0); Hematocrit 36.5 % (36.0-47.0); Hemoglobin 11.2 g/dL (12.0-16.0); Mean Corpuscular HGB CONC 30.7 g/dL (32.0-36.0); Mean Corpuscular Hemoglobin 28.1 pg (27.0-31.0); Mean Corpuscular Volume 91.7 fl (78.0-98.0); Mean Platelet Volume 9.9 fL (7.4-10.4); Platelet Count 245 10x3/uL (130-400); RBC Distribution Width 13.5 % (11.5-14.5); Red Blood Cell (RBC) Count 3.98 mill/uL (4.20-5.40); White Blood Cell (WBC) Count 5.2 10x3/uL (4.8-10.8)
[2023-10-11] MEDS ORDERED: Famotidine/PF 20 mg/2ml Vial ONE (11:59)
[2023-10-11] MEDS ORDERED: methylPREDNISolone Sod Succ/PF 125 MG/2 ML VIAL ONE (11:59)
[2023-10-11] MEDS ORDERED: Ipratropium/Albuterol 3 ML NEB ONE (12:01)
[2023-10-11 12:05] LABS: INR-International Normal Ratio 1.2; PTT 32.5 sec (22.9-36.1); Prothrombin Time 14.9 sec (12.0-14.7)
[2023-10-11 12:07] LABS: D-Dimer Test 2.57 mcg/mL (0.27-0.43)
[2023-10-11 12:15] LABS: ALT (SGPT) 10 U/L (8-55); AST (SGOT) 19 U/L (5-34); Albumin 3.4 g/dL (3.4-4.8); Alkaline Phosphatase 83 U/L (40-110); Anion Gap 14 mmol/L (10-20); BUN (Urea Nitrogen) 10 mg/dL (9.8-20.1); Bilirubin, Total 0.4 mg/dL (0.2-1.2); Calc. Creatinine Clearance 0 mL/min (70-130); Calcium 9.3 mg/dL (7.8-10.44); Carbon Dioxide 27 mmol/L (23-31); Chloride 96 mmol/L (98-107); Estimated GFR 71; Globulin 5.5 g/dL (2.4-3.5); Glucose 177 mg/dL (80-115); Lipase 17 U/L (8-78); Protein, Total 8.9 g/dL (5.8-8.1); Sodium 133 mmol/L (136-145)
[2023-10-11 12:17] LABS: Troponin I 0.057 ng/mL (< 0.028)
[2023-10-11] MEDS ORDERED: Sodium Chloride 0.9% 100 ML ONE (12:39)
[2023-10-11] MEDS ORDERED: cefTRIAXone (ROCEPHIN) 1 GM VIAL ONE (12:39)
[2023-10-11] MEDS ORDERED: Azithromycin 500 MG VIAL ONE (12:39)
[2023-10-11] MEDS ORDERED: Zolpidem Tartrate 5 MG TAB PO PRN (15:24)
[2023-10-11] MEDS ORDERED: Ondansetron PF 4 MG/2 ML Vial IVP PRN (15:24)
[2023-10-11] MEDS ORDERED: Ondansetron ODT 4 MG TAB PO PRN (15:24)
[2023-10-11] MEDS ORDERED: Guaifenesin DM 100-10/5 ML UDCUP PO PRN (15:24)
[2023-10-11] MEDS ORDERED: Acetaminophen 650 MG Suppository PR PRN (15:24)
[2023-10-11] MEDS ORDERED: Acetaminophen 325 MG TAB PO PRN (15:24)
[2023-10-11] MEDS ORDERED: Bisacodyl 10 MG SUPP PR PRN (15:24)
[2023-10-11] MEDS ORDERED: Bisacodyl 5 MG TAB PO PRN (15:24)
[2023-10-11] MEDS ORDERED: Calcium Carbonate 500 MG ChewTAB PO PRN (15:24)
[2023-10-11] MEDS ORDERED: Glucagon 1 MG/ML KIT IM PRN (15:27)
[2023-10-11] MEDS ORDERED: Dextrose 50% Abboject 50 ML SYRINGE SLOW IVP PRN (15:27)
[2023-10-11] MEDS ORDERED: Dextrose 5% in Water 1,000 ML IV PRN (15:27)
[2023-10-11] MEDS ORDERED: Aspirin Chewable 81 MG TAB ONE (15:38)
[2023-10-11 17:36] VITALS: BMI 27.8
[2023-10-11 17:42] LABS: Troponin I 0.056 ng/mL (< 0.028)
[2023-10-11] MEDS: Sodium Chloride 0.9% 1,000 ML IV SCH (17:53)
[2023-10-11] MEDS: Losartan 25 MG TAB PO SCH (18:43)
[2023-10-11] MEDS ORDERED: fentaNYL 50 mcg/mL 1 mL Vial SLOW IVP SCH (19:45)
[2023-10-11] MEDS: Ibuprofen 600 MG TAB PO SCH (21:21)
[2023-10-11] MEDS: Apixaban 5 MG TAB PO SCH (21:22)
[2023-10-11] MEDS: Ipratropium/Albuterol 3 ML NEB NEB PRN (22:57)
[2023-10-11 23:26] LABS: Troponin I 0.058 ng/mL (< 0.028)
[2023-10-12 04:30] LABS: #Monocytes 0.1 thou/uL (0.11-0.59); #Neutrophils 2.4 thou/uL (1.40-6.50); %Basophils 0.3 % (0.0-1.0); %Lymphocytes 21.7 % (21.0-51.0); %Monocytes 2.5 % (0.0-10.0); %Neutrophils 74.9 % (42.0-75.0); Hematocrit 34.1 % (36.0-47.0); Hemoglobin 10.3 g/dL (12.0-16.0); Mean Corpuscular HGB CONC 30.2 g/dL (32.0-36.0); Mean Corpuscular Hemoglobin 28.1 pg (27.0-31.0); Mean Corpuscular Volume 93.2 fl (78.0-98.0); Mean Platelet Volume 10.4 fL (7.4-10.4); Platelet Count 238 10x3/uL (130-400); RBC Distribution Width 13.6 % (11.5-14.5); Red Blood Cell (RBC) Count 3.66 mill/uL (4.20-5.40); White Blood Cell (WBC) Count 3.2 10x3/uL (4.8-10.8)
[2023-10-12 05:11] LABS: ALT (SGPT) 8 U/L (8-55); AST (SGOT) 15 U/L (5-34); Albumin 2.9 g/dL (3.4-4.8); Alkaline Phosphatase 71 U/L (40-110); Anion Gap 14 mmol/L (10-20); BUN (Urea Nitrogen) 20 mg/dL (9.8-20.1); Bilirubin, Total 0.2 mg/dL (0.2-1.2); Calc. Creatinine Clearance 49 mL/min (70-130); Calcium 8.6 mg/dL (7.8-10.44); Carbon Dioxide 23 mmol/L (23-31); Chloride 98 mmol/L (98-107); Critical Call Chemistry NUR.KDO@0510; Estimated GFR 43; Globulin 4.9 g/dL (2.4-3.5); Glucose 447 mg/dL (80-115); Protein, Total 7.8 g/dL (5.8-8.1); Sodium 130 mmol/L (136-145)
[2023-10-12] MEDS: HumaLOG 300 UNITS/3 ML VIAL SC PRN (05:22)
[2023-10-12] MEDS: methylPREDNISolone Sod Succ 40 MG VIAL IVP SCH (10:10)
[2023-10-12 10:40] LABS: Troponin I 0.056 ng/mL (< 0.028)
[2023-10-12] MEDS: Losartan 25 MG TAB PO SCH (11:54)
[2023-10-12] MEDS: cefTRIAXone\\ROCEPHIN 1 GM in Sodium Chloride 0.9% 100 ML IVPB SCH (11:54)
[2023-10-12] MEDS: Azithromycin 500 MG in Sodium Chloride 0.9% 250 ML 250 ML IVPB SCH (13:26)
[2023-10-12 17:19] LABS: Bilirubin Negative (Negative); Blood, Urine Negative (Negative); CAUTI Indications for Culture Pelvic or flank pain; Clarity Clear (Clear); Glucose, Urine (Dipstick) Greater than 1000 mg/dL (Negative); Ketone, Urine Negative (Negative); Leukocyte Negative Leu/uL (Negative); Nitrite Negative (Negative); Protein, Urine (Dipstick) 100 mg/dL (Neg-Trace); RBC/HPF 0-3 HPF (0-3); Specific Gravity, Urine 1.014 (1.002-1.036); Squamous Epithelial 0-3 HPF (0-3); Urobilinogen Normal mg/dL (Less than 2); WBC/HPF 0-3 HPF (0-3); pH, Urine 5.5 (5.0-9.0)
[2023-10-12 17:23] LABS: Bacteria/HPF 1+ HPF (None Seen)
[2023-10-12 17:24] LABS: Urine Culture Reflex No No
[2023-10-12] MEDS: Ipratropium/Albuterol 3 ML NEB NEB SCH (18:25)
[2023-10-13 05:17] LABS: #Monocytes 0.5 thou/uL (0.11-0.59); #Neutrophils 3.9 thou/uL (1.40-6.50); %Basophils 0.5 % (0.0-1.0); %Eosinophils 0.3 % (0.0-10.0); %Lymphocytes 31.2 % (21.0-51.0); %Monocytes 7.2 % (0.0-10.0); %Neutrophils 60.5 % (42.0-75.0); Hematocrit 33.9 % (36.0-47.0); Hemoglobin 10.1 g/dL (12.0-16.0); Mean Corpuscular HGB CONC 29.8 g/dL (32.0-36.0); Mean Corpuscular Hemoglobin 28.2 pg (27.0-31.0); Mean Corpuscular Volume 94.7 fl (78.0-98.0); Mean Platelet Volume 10.3 fL (7.4-10.4); Platelet Count 274 10x3/uL (130-400); RBC Distribution Width 13.8 % (11.5-14.5); Red Blood Cell (RBC) Count 3.58 mill/uL (4.20-5.40); White Blood Cell (WBC) Count 6.4 10x3/uL (4.8-10.8)
[2023-10-13 05:36] LABS: Troponin I 0.063 ng/mL (< 0.028)
[2023-10-13 05:39] LABS: ALT (SGPT) 8 U/L (8-55); AST (SGOT) 12 U/L (5-34); Albumin 3.4 g/dL (3.4-4.8); Alkaline Phosphatase 70 U/L (40-110); Anion Gap 13 mmol/L (10-20); BUN (Urea Nitrogen) 26 mg/dL (9.8-20.1); Bilirubin, Total 0.2 mg/dL (0.2-1.2); Calc. Creatinine Clearance 56 mL/min (70-130); Calcium 9.2 mg/dL (7.8-10.44); Carbon Dioxide 26 mmol/L (23-31); Chloride 100 mmol/L (98-107); Estimated GFR 51; Globulin 5.3 g/dL (2.4-3.5); Glucose 237 mg/dL (80-115); Potassium 4.2 mmol/L (3.5-5.1); Protein, Total 8.7 g/dL (5.8-8.1); Sodium 135 mmol/L (136-145)
[2023-10-13] MEDS: Losartan 25 MG TAB PO SCH ×2 (09:21→21:54)
[2023-10-13] MEDS ORDERED: LEVALBUTEROL TARTRATE NASAL PRN (15:53)
[2023-10-13] MEDS: Insulin Glargine 30 UNITS/0.3 ML VIAL SC SCH (17:33)
[2023-10-13] MEDS: Apixaban 5 MG TAB PO SCH (21:55)
[2023-10-14 05:11] LABS: #Monocytes 0.5 thou/uL (0.11-0.59); #Neutrophils 3.2 thou/uL (1.40-6.50); %Basophils 0.5 % (0.0-1.0); %Eosinophils 0.3 % (0.0-10.0); %Lymphocytes 35.8 % (21.0-51.0); %Neutrophils 55.2 % (42.0-75.0); Hematocrit 31.5 % (36.0-47.0); Hemoglobin 9.4 g/dL (12.0-16.0); Mean Corpuscular HGB CONC 29.8 g/dL (32.0-36.0); Mean Corpuscular Hemoglobin 28.1 pg (27.0-31.0); Mean Corpuscular Volume 94.3 fl (78.0-98.0); Mean Platelet Volume 10.2 fL (7.4-10.4); Platelet Count 234 10x3/uL (130-400); RBC Distribution Width 13.7 % (11.5-14.5); Red Blood Cell (RBC) Count 3.34 mill/uL (4.20-5.40); White Blood Cell (WBC) Count 5.8 10x3/uL (4.8-10.8)
[2023-10-14 05:43] LABS: ALT (SGPT) 9 U/L (8-55); AST (SGOT) 19 U/L (5-34); Albumin 3.2 g/dL (3.4-4.8); Alkaline Phosphatase 63 U/L (40-110); Anion Gap 13 mmol/L (10-20); BUN (Urea Nitrogen) 25 mg/dL (9.8-20.1); Bilirubin, Total 0.2 mg/dL (0.2-1.2); Calc. Creatinine Clearance 60 mL/min (70-130); Carbon Dioxide 26 mmol/L (23-31); Chloride 101 mmol/L (98-107); Estimated GFR 55; Globulin 4.7 g/dL (2.4-3.5); Glucose 244 mg/dL (80-115); Potassium 4.5 mmol/L (3.5-5.1); Protein, Total 7.9 g/dL (5.8-8.1); Sodium 135 mmol/L (136-145)
[2023-10-14] MEDS ORDERED: Apixaban 5 MG TAB PO SCH (09:00)
[2023-10-14] MEDS: Aspirin 81 mg Enteric Coated Tablet PO SCH (09:17)
[2023-10-14] MEDS: Insulin Glargine 30 UNITS/0.3 ML VIAL SC SCH (09:18)
[2023-10-14] MEDS: Ipratropium/Albuterol 3 ML NEB NEB SCH (12:48)
[2023-10-14] MEDS: Senokot S 8.6-50 MG TAB PO PRN (17:11)
[2023-10-14] MEDS: Amlodipine 10 MG TAB PO SCH (17:38)
[2023-10-15] MEDS: predniSONE 50 MG TAB PO SCH (08:11)
[2023-10-15] MEDS: Amlodipine 10 MG TAB PO SCH (08:11)
[2023-10-15] MEDS: Insulin Glargine 30 UNITS/0.3 ML VIAL SC SCH (08:40)
[2023-10-15 16:20] VITALS: BP 144/68; TEMP 98.5
== END 2023-10-15 19:25 | disposition home health service (06) | DRG 871 ==
LOC: ERS 11:09 → ERHOLD 14:52 → OBSVTOIN 15:24 → 2SE 16:26 → T4-A 10-14 16:41
PROVIDERS: ADMIT Internal Medicine; ATTEND Internal Medicine
DX: A41.9 Sepsis, unspecified organism (principal); J96.01 Acute respiratory failure with hypoxia; J44.1 Chronic obstructive pulmonary disease with (acute) exacerbation; I5A Non-ischemic myocardial injury (non-traumatic); Z88.5 Allergy status to narcotic agent; Z91.041 Radiographic dye allergy status; Z79.899 Other long term (current) drug therapy; Z79.82 Long term (current) use of aspirin; M19.90 Unspecified osteoarthritis, unspecified site; Z98.890 Other specified postprocedural states; E11.22 Type 2 diabetes mellitus with diabetic chronic kidney disease; N18.9 Chronic kidney disease, unspecified; Z79.01 Long term (current) use of anticoagulants
CPT/HCPCS: 36415; 36416; 70450; 71045; 76700; 78451; 80053; 81001; 83605; 83690; 83880; 84484; 85025; 85379; 85610; 85730; 87040; 87077; 87186; 93005; 93970; 94640; 94760; 96365; 96366; 96368; 96375; A9540; J0456; J0696; J1815; J2920; J2930; J3490; J7050; J7512; J7620; S0028

== ENCOUNTER 2024-04-16 20:17 | Inpatient (IN) | payer MEDICARE, OTHER ==
[2024-04-16] MEDS ORDERED: Ondansetron PF 4 MG/2 ML Vial IVP PRN (21:45)
[2024-04-16 22:01] VITALS: BMI 23.2
[2024-04-16] MEDS ORDERED: Albuterol 200 PUFF (6.7GM INHALER) INH PRN (22:26)
[2024-04-16] MEDS ORDERED: Insulin Lispro 100 UNIT/ML 10 ML VIAL SC PRN (22:27)
[2024-04-16] MEDS ORDERED: Dextrose 50% Abboject 50 ML SYRINGE SLOW IVP PRN (22:27)
[2024-04-16] MEDS ORDERED: Glucagon 1 MG/ML KIT IM PRN (22:27)
[2024-04-16] MEDS ORDERED: Dextrose 5% in Water 1,000 ML IV PRN (22:27)
[2024-04-16] MEDS ORDERED: cefTRIAXone Sodium 2 MG in Syringe 0 ML IVPB SCH (22:45)
[2024-04-16] MEDS: cefTRIAXone\\ROCEPHIN 2 GM in Sodium Chloride 0.9% 100 ML IVPB SCH (23:20)
[2024-04-16] MEDS: Sodium Chloride 0.9% 1,000 ML IV SCH (23:21)
[2024-04-16] MEDS: Acetaminophen 325 MG TAB PO SCH (23:42)
[2024-04-17] MEDS: Piperacillin/Tazobactam 3.375 GM in Sodium Chloride 0.9% 100 ML IVPB SCH ×2 (02:20→06:01)
[2024-04-17 05:37] LABS: #Basophils 0.06 10x3/uL (0.0-0.2); %Basophils 0.6 % (0.0-1.0); %Eosinophils 2.2 % (0.0-10.0); %Lymphocytes 17.8 % (21.0-51.0); %Monocytes 8.2 % (0.0-10.0); %Neutrophils 70.9 % (42.0-75.0); Hematocrit 30.9 % (36.0-47.0); Hemoglobin 10.5 g/dL (12.0-16.0); Mean Corpuscular Hemoglobin 29.7 pg (27.0-31.0); Mean Corpuscular Volume 87.5 fL (78.0-98.0); Mean Platelet Volume 10.6 fL (7.4-10.4); Platelet Count 217 10x3/uL (130-400); RBC Distribution Width 11.9 % (11.5-14.5); Red Blood Cell (RBC) Count 3.53 mill/uL (4.20-5.40)
[2024-04-17 05:52] LABS: Hemoglobin A1c 9.4 % (4.0-6.0)
[2024-04-17 05:57] LABS: ALT (SGPT) 7 U/L (8-55); AST (SGOT) 12 U/L (5-34); Albumin 2.7 g/dL (3.4-4.8); Alkaline Phosphatase 82 U/L (40-110); Anion Gap 17 mmol/L (10-20); BUN (Urea Nitrogen) 35 mg/dL (9.8-20.1); Bilirubin, Total 0.2 mg/dL (0.2-1.2); Calc. Creatinine Clearance 36 mL/min (70-130); Calcium 9.1 mg/dL (7.8-10.44); Carbon Dioxide 18 mmol/L (23-31); Cardiac Risk 5.3 (Less than 4.5); Chloride 101 mmol/L (98-107); Cholesterol 203 mg/dl (< 200 Desired); Estimated GFR 39; Globulin 4.7 g/dL (2.4-3.5); Glucose 442 mg/dL (80-115); HDL Cholesterol 38 mg/dL (>60 Neg Risk); LDL Cholesterol, Calculated 140 mg/dL; Protein, Total 7.4 g/dL (5.8-8.1); Sodium 132 mmol/L (136-145); Triglycerides 123 mg/dL (Less than 150)
[2024-04-17] MEDS ORDERED: Piperacillin/Tazobactam 3.375 GM in Sodium Chloride 0.9% 100 ML IVPB SCH (06:00)
[2024-04-17] MEDS: Insulin Lispro 100 UNIT/ML 10 ML VIAL SC PRN (06:01)
[2024-04-17] MEDS ORDERED: Enoxaparin 40 MG (0.4 mL) SYRINGE SC SCH (09:00)
[2024-04-17] MEDS ORDERED: Famotidine/PF 20 mg/2ml Vial SLOW IVP SCH (09:00)
[2024-04-17] MEDS ORDERED: Famotidine 20 MG TAB PO SCH (09:00)
[2024-04-17] MEDS: Famotidine/PF 20 mg/2ml Vial SLOW IVP SCH (10:04)
[2024-04-17] MEDS: traMADol HCl 50 MG TAB PO PRN (10:17)
[2024-04-17] MEDS: Famotidine 20 MG TAB PO SCH (10:19)
[2024-04-17] MEDS: Heparin 5,000 UNITS/ML VIAL SC SCH (10:20)
[2024-04-17] MEDS: Sodium Chloride 0.9% 1,000 ML IV SCH (11:27)
[2024-04-17 12:31] VITALS: BMI 23.2
[2024-04-17] MEDS: Insulin Glargine 30 UNITS/0.3 ML VIAL SC SCH (12:44)
[2024-04-17] MEDS: Ondansetron ODT 4 MG TAB PO PRN (20:49)
[2024-04-18 08:00] VITALS: BP 104/57; TEMP 98.8
[2024-04-18] MEDS: Insulin Glargine 30 UNITS/0.3 ML VIAL SC SCH (09:21)
== END 2024-04-18 14:55 | disposition home or self-care (01) | DRG 690 ==
LOC: 2SW 21:39 → OBSVTOIN 04-17 10:27
PROVIDERS: ADMIT Internal Medicine; ATTEND Internal Medicine
DX: N30.80 Other cystitis without hematuria (principal); R55 Syncope and collapse; I10 Essential (primary) hypertension; E11.65 Type 2 diabetes mellitus with hyperglycemia; Z79.82 Long term (current) use of aspirin; Z79.01 Long term (current) use of anticoagulants; Z79.899 Other long term (current) drug therapy
CPT/HCPCS: 36415; 36416; 70450; 71250; 80053; 80061; 83036; 84443; 85025; 93306; 96372; 96374; 96375; 96376; G0378; J0696; J1644; J1815; J2543; J7030; Q0162

== ENCOUNTER 2025-03-06 19:17 | Inpatient (IN) | payer OTHER ==
[2025-03-07 01:26] VITALS: BMI 24.0
[2025-03-07] MEDS ORDERED: Dextrose 50% Abboject 50 ML SYRINGE SLOW IVP PRN (01:54)
[2025-03-07] MEDS ORDERED: Glucagon 1 MG/ML KIT IM PRN (01:54)
[2025-03-07] MEDS: Insulin Glargine 30 UNITS/0.3 ML VIAL SC SCH (02:17)
[2025-03-07] MEDS: Acetaminophen 325 MG TAB PO SCH (02:18)
[2025-03-07 04:51] LABS: Iron 8 ug/dL (50-170); Iron Binding Capacity, Total 170 mcg/dL (265-497); Transferrin, Serum 136 mg/dL (173-360)
[2025-03-07 04:59] LABS: ALT (SGPT) 10 U/L (Less than 34); AST (SGOT) 23 U/L (11-34); Albumin 2.3 g/dL (3.1-4.5); Alkaline Phosphatase 78 U/L (40-110); Anion Gap 11 mmol/L (10-20); BUN (Urea Nitrogen) 44 mg/dL (9.8-20.1); Bilirubin, Total 0.1 mg/dL (0.3-1.2); Calc. Creatinine Clearance 23 mL/min (70-130); Calcium 7.8 mg/dL (7.8-10.44); Carbon Dioxide 16 mmol/L (23-31); Chloride 104 mmol/L (98-107); Globulin 4.3 g/dL (2.4-3.5); Glucose 239 mg/dL (80-115); Potassium 4.5 mmol/L (3.5-5.1); Sodium 126 mmol/L (136-145)
[2025-03-07 05:02] LABS: Troponin I 0.033 ng/mL (< 0.028)
[2025-03-07 05:06] LABS: Hematocrit 21.3 % (36.0-47.0); Hemoglobin 7.0 g/dL (12.0-16.0); Mean Corpuscular Hemoglobin 28.6 pg (27.0-31.0); Mean Corpuscular Volume 86.9 fL (78.0-98.0); Platelet Count 212 10x3/uL (130-400); Red Blood Cell (RBC) Count 2.45 mill/uL (4.20-5.40); White Blood Cell (WBC) Count 16.28 10x3/uL (4.8-10.8)
[2025-03-07 05:40] LABS: Platelet Adequacy Comment Platelets Normal; RBC Morphology Within Normal Limits; Smudge Cells 5.0 %
[2025-03-07] MEDS: Enoxaparin 30 MG (0.3 mL) SYRINGE SC SCH (08:45)
[2025-03-07 10:41] LABS: Troponin I 0.030 ng/mL (< 0.028)
[2025-03-08 04:38] LABS: Hematocrit 26.3 % (36.0-47.0); Hemoglobin 8.5 g/dL (12.0-16.0); Mean Corpuscular Hemoglobin 28.6 pg (27.0-31.0); Mean Corpuscular Volume 88.6 fL (78.0-98.0); Platelet Count 231 10x3/uL (130-400); Red Blood Cell (RBC) Count 2.97 mill/uL (4.20-5.40); White Blood Cell (WBC) Count 13.14 10x3/uL (4.8-10.8)
[2025-03-08 04:51] LABS: Anion Gap 12 mmol/L (10-20); BUN (Urea Nitrogen) 37 mg/dL (9.8-20.1); Calc. Creatinine Clearance 28 mL/min (70-130); Calcium 7.9 mg/dL (7.8-10.44); Carbon Dioxide 15 mmol/L (23-31); Chloride 104 mmol/L (98-107); Glucose 231 mg/dL (80-115); Potassium 4.3 mmol/L (3.5-5.1); Sodium 127 mmol/L (136-145)
[2025-03-08 05:30] LABS: Platelet Adequacy Comment Platelets Normal; Polychromasia SLIGHT = 2-3 cells HPF (0-2)
[2025-03-08 13:48] LABS: Osmolality, Serum 293 mOsm/kg (280-301)
[2025-03-08 19:53] LABS: Sodium, Urine 24.0 mmol/L (Not Available)
[2025-03-08 19:59] LABS: Osmolality, Urine 228 mOsm/kg (50-1200)
[2025-03-09 09:02] LABS: #Basophils 0.03 10x3/uL (0.0-0.2); #Eosinophils 0.21 10x3/uL (0.0-0.7); #Monocytes 0.70 10x3/uL (0.11-0.59); #Neutrophils 6.34 10x3/uL (1.40-6.50); %Basophils 0.4 % (0.0-1.0); %Eosinophils 2.5 % (0.0-10.0); %Lymphocytes 13.4 % (21.0-51.0); %Monocytes 8.2 % (0.0-10.0); %Neutrophils 74.6 % (42.0-75.0); Hematocrit 26.4 % (36.0-47.0); Hemoglobin 8.4 g/dL (12.0-16.0); Mean Corpuscular Hemoglobin 28.8 pg (27.0-31.0); Mean Corpuscular Volume 90.4 fL (78.0-98.0); Platelet Count 255 10x3/uL (130-400); Red Blood Cell (RBC) Count 2.92 mill/uL (4.20-5.40); White Blood Cell (WBC) Count 8.50 10x3/uL (4.8-10.8)
[2025-03-09 09:18] LABS: ALT (SGPT) 12 U/L (Less than 34); AST (SGOT) 19 U/L (11-34); Albumin 2.2 g/dL (3.1-4.5); Alkaline Phosphatase 85 U/L (40-110); Anion Gap 10 mmol/L (10-20); BUN (Urea Nitrogen) 30 mg/dL (9.8-20.1); Bilirubin, Total 0.1 mg/dL (0.3-1.2); Calc. Creatinine Clearance 36 mL/min (70-130); Calcium 8.1 mg/dL (7.8-10.44); Carbon Dioxide 15 mmol/L (23-31); Chloride 111 mmol/L (98-107); Globulin 4.6 g/dL (2.4-3.5); Glucose 229 mg/dL (80-115); Potassium 4.2 mmol/L (3.5-5.1); Sodium 132 mmol/L (136-145)
[2025-03-09] MEDS ORDERED: Ciprofloxacin 500 MG TAB PO SCH ×2 (10:15→20:00)
[2025-03-09] MEDS: Acidophilus Lactiobac CAPSULE PO SCH (11:05)
[2025-03-09] MEDS: Ciprofloxacin 500 MG TAB PO SCH ×2 (13:08→20:13)
[2025-03-10 04:16] LABS: #Basophils 0.04 10x3/uL (0.0-0.2); #Eosinophils 0.23 10x3/uL (0.0-0.7); #Monocytes 0.58 10x3/uL (0.11-0.59); #Neutrophils 5.33 10x3/uL (1.40-6.50); %Basophils 0.5 % (0.0-1.0); %Eosinophils 3.0 % (0.0-10.0); %Lymphocytes 19.4 % (21.0-51.0); %Monocytes 7.5 % (0.0-10.0); %Neutrophils 68.4 % (42.0-75.0); Hematocrit 29.3 % (36.0-47.0); Hemoglobin 9.1 g/dL (12.0-16.0); Mean Corpuscular Hemoglobin 28.2 pg (27.0-31.0); Mean Corpuscular Volume 90.7 fL (78.0-98.0); Platelet Count 303 10x3/uL (130-400); Red Blood Cell (RBC) Count 3.23 mill/uL (4.20-5.40); White Blood Cell (WBC) Count 7.78 10x3/uL (4.8-10.8)
[2025-03-10 04:48] LABS: ALT (SGPT) 12 U/L (Less than 34); AST (SGOT) 25 U/L (11-34); Albumin 2.2 g/dL (3.1-4.5); Alkaline Phosphatase 102 U/L (40-110); Anion Gap 13 mmol/L (10-20); BUN (Urea Nitrogen) 27 mg/dL (9.8-20.1); Bilirubin, Total 0.1 mg/dL (0.3-1.2); Calc. Creatinine Clearance 39 mL/min (70-130); Calcium 8.6 mg/dL (7.8-10.44); Carbon Dioxide 16 mmol/L (23-31); Chloride 112 mmol/L (98-107); Globulin 5.3 g/dL (2.4-3.5); Glucose 175 mg/dL (80-115); Potassium 4.6 mmol/L (3.5-5.1); Sodium 136 mmol/L (136-145)
[2025-03-10] MEDS ORDERED: Ibuprofen 600 MG TAB PO PRN (08:09)
[2025-03-10] MEDS: Floranex 1 GM Packet PO SCH (09:56)
[2025-03-10] MEDS: Pantoprazole 40 MG DR.TAB PO SCH (10:58)
[2025-03-10 16:46] VITALS: BP 158/62; TEMP 98.1
[2025-03-11] MEDS ORDERED: Pantoprazole 40 MG DR.TAB PO SCH (09:00)
== END 2025-03-10 16:51 | disposition home or self-care (01) | DRG 871 ==
LOC: 2NO 03-07 00:35
PROVIDERS: ADMIT Family Medicine; ATTEND Family Medicine
PROC: 3E03329 Introduction of Other Anti-infective into Peripheral Vein, Percutaneous Approach (ICD-10-PCS; principal; 2025-03-07)
PROC: 30233N1 Transfusion of Nonautologous Red Blood Cells into Peripheral Vein, Percutaneous Approach (ICD-10-PCS; 2025-03-07)
DX: A41.53 Sepsis due to Serratia (principal); I21.A1 Myocardial infarction type 2; E87.1 Hypo-osmolality and hyponatremia; N12 Tubulo-interstitial nephritis, not specified as acute or chronic; N17.9 Acute kidney failure, unspecified; J44.9 Chronic obstructive pulmonary disease, unspecified; Z66 Do not resuscitate; E11.65 Type 2 diabetes mellitus with hyperglycemia; D64.9 Anemia, unspecified; Z79.82 Long term (current) use of aspirin; Z79.51 Long term (current) use of inhaled steroids; Z88.8 Allergy status to other drugs, medicaments and biological substances; Z88.5 Allergy status to narcotic agent; Z86.73 Personal history of transient ischemic attack (TIA), and cerebral infarction without residual deficits; Z98.891 History of uterine scar from previous surgery; Z98.890 Other specified postprocedural states; Z83.3 Family history of diabetes mellitus; Z87.891 Personal history of nicotine dependence; Z88.6 Allergy status to analgesic agent; M54.9 Dorsalgia, unspecified; G89.29 Other chronic pain; Z91.041 Radiographic dye allergy status; E86.0 Dehydration; I27.20 Pulmonary hypertension, unspecified; R19.7 Diarrhea, unspecified; E11.42 Type 2 diabetes mellitus with diabetic polyneuropathy; L29.9 Pruritus, unspecified; K59.00 Constipation, unspecified; Z87.11 Personal history of peptic ulcer disease; M54.50 Low back pain, unspecified; R19.5 Other fecal abnormalities
CPT/HCPCS: 36415; 36416; 36430; 80048; 80053; 82570; 82728; 83036; 83540; 83550; 83930; 83935; 84300; 84466; 84484; 85025; 86850; 86900; 86901; 87324; 87449; J0692; J1650; J1815; J2270; J7030; P9016